=== PATIENT | female | born 1945 | race Caucasian/White ===

== ENCOUNTER 2022-03-23 12:54 | Outpatient (CLI) | payer MEDICARE, BC, SELFPAY ==
--- NOTE | 2022-03-23 13:00 | MR_ITS ---
[address] [address] Phone:?[phone] Fax:?[phone] Referring Physician Information: Harvey Bryant M.D. [id number] [address] Phone:?[phone] Fax:?[phone] Patient:Mert Ritter D.O.B:?1945 Sex:?Female Phone:?[phone] [facility] MRN:?[id number] Exam Date:?03/23/2022 ? EXAM: MRI of the RIGHT KNEE, without contrast CLINICAL INFORMATION: Female, 76 years old, with right knee pain INDICATION: Evaluate medial meniscus PRIOR SURGERY: None reported. PLAIN FILMS: None available. COMPARISONS: No prior MRIs available. TECHNICAL INFORMATION: Using a 1.5T MR scanner and a localizing surface coil: sagittals: PD, PDFS coronals: PD, T2FS axials: PD, PDFS SEDATION: None CONTRAST: None FINDINGS: Knee joint: Effusion: Physiologic right knee effusion. Popliteal cyst: Moderate sized popliteal cyst without evidence of rupture Loose bodies: None. Subcutaneous and extra-articular soft tissues: Unremarkable. Ligaments: ACL: Intact ACL anteromedial and posterolateral bundles, without sprain or tear. PCL: Intact PCL, without acute or chronic injury. MCL: Thickening of the proximal superficial MCL suggests residua of chronic incomplete sprain injury. LCL: Intact LCL, without injury. Posterolateral corner: No posterolateral corner soft tissue injury. Popliteus, biceps femoris, iliotibial band, popliteofibular ligament and lateral gastrocnemius are intact. Posteromedial corner: No posteromedial corner soft tissue injury. Semimembranosus, pes anserine tendons and posterior oblique ligament are without injury, tendinopathy or bursitis. Extensor mechanism: Patellar tendon: Intact, without tendinopathy. Quadriceps tendon: Intact, without tendinopathy. Retinacula: Medial and lateral retinacula are intact. Fat pads: Unremarkable infrapatellar Hoffa's, quadriceps and prefemoral fat pads. Medial compartment: Medial meniscus: Medial meniscus is abnormal in appearance with horizontal undersurface tearing through the body and posterior horn over a length of approximately 3.4 cm. Intrasubstance signal and degeneration extends into the posterior root without posterior root disruption. Tearing extends through the meniscal periphery along the posterior horn with 1.0 x 0.3 cm parameniscal ganglion cyst (sagittal series 6 image 22, and axial series 4 image 21). Tearing results in 4 mm peripheral meniscal extrusion at the level of the body with 5 mm inferior extension into the medial gutter. Medial femoral condyle: Broad-based grade II/III chondral thinning of the medial compartment articular cartilage Medial tibial plateau: Grade II/III chondral thinning of the anterior medial tibial plateau. Lateral compartment: Lateral meniscus: No articular surface, meniscosynovial junction or root tear. No displacement, extrusion or parameniscal cyst. Lateral femoral condyle: No chondromalacia or osteochondral abnormality. Lateral tibial plateau: No chondromalacia or osteochondral abnormality. Patellofemoral joint: Patella: Grade II/III chondral thinning of the superior medial patellar facet extending to the central midline ridge 1.6 x 1.0 cm. Trochlea: Grade II/III chondral thinning of the medial trochlea. Proximal tibiofibular joint: Unremarkable, without evidence of ligament sprain injury, joint effusion or adjacent marrow edema. Bones: No stress/occult fractures or other marrow edema/pathology. IMPRESSION: 1. Horizontal undersurface tearing throughout the posterior body and posterior horn of the medial meniscus. Some degree of degeneration and tearing extends into the posterior root without high-grade posterior root disruption. Small periumbilical ganglion at the periphery of the posterior horn. Tearing results in 4 mm peripheral meniscal extrusion at the level of the body with 5 mm inferior extension into the medial gutter. 2. Medial and patellofemoral compartment chondromalacia as described above without full-thickness chondral defect. 3. No lateral meniscus tear. Lateral compartment articular cartilage is intact. 4. Suggested residua of chronic incomplete superficial MCL sprain injury. 5. Moderate sized popliteal cyst. 6. No knee joint effusion. KME Electronically signed on 03/24/2022 3:54:00 PM by Yenifer Chicas M.D.
== END 2022-03-23 12:55 | disposition home or self-care (01) ==
PROVIDERS: PCP Physician Assistant; Visit Provider Orthopaedic Surgery Sports Medicine
DX: M25.561 Pain in right knee (principal); S83.241A Other tear of medial meniscus, current injury, right knee, initial encounter; M23.221 Derangement of posterior horn of medial meniscus due to old tear or injury, right knee; S83.521A Sprain of posterior cruciate ligament of right knee, initial encounter; M71.21 Synovial cyst of popliteal space [Baker], right knee
CPT/HCPCS: 73721

== ENCOUNTER 2023-06-02 14:23 | Outpatient (CLI) | payer MEDICARE, BC, SELFPAY | END 2023-06-02 14:24 | disposition home or self-care (01) | LOC: NFLDREF 06-06 11:05 | PROVIDERS: Visit Provider Physician Assistant | DX: R30.0 Dysuria (principal); N39.0 Urinary tract infection, site not specified | CPT/HCPCS: 87086; 87186 ==

== ENCOUNTER 2023-07-21 14:05 | Outpatient (CLI) | payer MEDICARE, BC, SELFPAY | END 2023-07-21 14:06 | disposition home or self-care (01) | LOC: NFLDREF 07-24 03:43 | PROVIDERS: Visit Provider Physician Assistant | DX: R30.0 Dysuria (principal); N39.0 Urinary tract infection, site not specified | CPT/HCPCS: 87086 ==

== ENCOUNTER 2024-03-27 10:43 | Outpatient (CLI) | payer MEDICARE, BC, SELFPAY | END 2024-03-27 10:44 | disposition home or self-care (01) | LOC: NFLDREF 03-31 07:33 | PROVIDERS: Visit Provider Nurse Practitioner Family | DX: N39.0 Urinary tract infection, site not specified (principal) | CPT/HCPCS: 87086; 87186 ==

== ENCOUNTER 2024-07-26 16:04 | Outpatient (CLI) | payer MEDICARE, BC, SELFPAY | END 2024-07-26 16:05 | disposition home or self-care (01) | LOC: NFLDREF 07-30 07:34 | PROVIDERS: PCP Physician Assistant; Referring Provider Physician Assistant; Visit Provider Physician Assistant | DX: N39.0 Urinary tract infection, site not specified (principal); B96.20 Unspecified Escherichia coli [E. coli] as the cause of diseases classified elsewhere | CPT/HCPCS: 87086; 87186 ==

== ENCOUNTER 2025-04-16 13:20 | Outpatient (CLI) | payer MEDICARE, BC, SELFPAY | END 2025-04-16 13:21 | disposition home or self-care (01) | LOC: NFLDREF 04-18 12:19 | PROVIDERS: PCP Physician Assistant; Referring Provider Physician Assistant; Visit Provider Physician Assistant | DX: N39.0 Urinary tract infection, site not specified (principal); R31.9 Hematuria, unspecified; B96.20 Unspecified Escherichia coli [E. coli] as the cause of diseases classified elsewhere | CPT/HCPCS: 87086 ==